=== PATIENT | female | born 1975 | race Caucasian/White ===

== ENCOUNTER → 2023-11-06 09:20 | Outpatient (REF) | payer OTHER, SELFPAY | LOC: RAD 09:20 | PROVIDERS: ATTENDING PHYSICIAN Internal Medicine Cardiovascular Disease; FAMILY PHYSICIAN Nurse Practitioner Primary Care | DX: R94.39 Abnormal result of other cardiovascular function study (principal); R94.31 Abnormal electrocardiogram [ECG] [EKG]; I51.7 Cardiomegaly | CPT/HCPCS: 75574; Q9967 ==